=== PATIENT | female | born 1960 | race Caucasian/White ===

== ENCOUNTER 2019-03-12 07:30 | Observation (INO) | payer OTHER ==
[~2019-03-12] VITALS: Ht 170.2 cm; Wt 105.8 kg
[2019-03-12] VITALS (16 sets, daily range): BP systolic 96–136; BP diastolic 60–85
--- OUTSIDE RECORDS SUMMARY | 2019-03-12 07:32 | XMS REPORT | Clinical Summary ---
Author Author [employer] Organization [employer] Address Unknown Phone Unavailable Care Team Providers Care Hot Dog Vendor Name Role Phone Rikki Barba DO PCP Allergies Not on File Medications Not on file Active Problems Not on file Encounters Care Team Description Date Type Specialty Rikki Barba DO Breast cancer screening 07/31/2018 [facility] Radiology Encounter Rikki Barba DO Breast cancer screening (Primary Dx) 07/25/2018 Transcribe Access Orders after 03/11/2018 Family History Medical History Relation Name Comments Breast cancer Maternal Aunt Relation Name Status Comments Maternal Aunt Social History Date Tobacco Use Types Packs/Day Years Used Never Assessed Sex Assigned at Date Recorded Not on file Industry Job Start Date Occupation Not on file Not on file Not on file Travel End Travel History Travel Start No recent travel history available. Last Filed Vital Signs Not on file Plan of Treatment Health Maintenance Due Date Last Done Comments CERVICAL CANCER SCREENING 02/05/1980 COLON CANCER SCREENING 2009 SHINGLES VACCINES (#1) 2009 INFLUENZA VACCINE 06/27/2019 BREAST CANCER SCREENING 07/31/2020 07/31/2018, 07/14/2017, 06/06/2016, Additional history exists Procedures Comments Procedure Name Priority Date/Time Associated Diagnosis MAMMO SCREENING W CAD Routine 07/31/2018 Breast cancer screening BILATERAL 7:55 AM CDT after 03/11/2018 Results * Mammo Screening w Cad Bilateral (07/31/2018 7:55 AM CDT) Narrative Performed At PROCEDURE: MAMMO SCREENING W CAD BILATERAL [facility] Computer aided detection was utilized for the interpretation of the bilateral digital screening mammogram. COMPARISON EXAMS: [id number] DENSITY:The breast tissue is heterogeneously dense, which may obscure small masses. FINDINGS: No suspicious finding is seen. IMPRESSION: No mammographic evidence of malignancy. Recommend annual screening mammography and correlation with physical exam. BI-RADS 1:NEGATIVE This facility is accredited by the [employer] for Mammography. A negative x-ray report should not delay biopsy if a dominant or clinically suspicious mass is present.Not all cancers are identified by x-ray. [id number] Performing Organization Address City/State/Zipcode Phone Number [address] [place] [address] after 03/11/2018 Insurance Payer Benefit Subscriber ID Type Phone Address Plan / Group AETNA AETNA xxxxxxxxxx HMO HMO,POS,EP O, MC/EC
--- OUTSIDE RECORDS SUMMARY | 2019-03-12 07:33 | XMS REPORT | Encounter Summary ---
Author Organization Unknown Address [address] [place] [address] Phone [phone] Reason for Visit Medical Complaint Instructions 1. Upper respiratory infection upper respiratory infection (cold): care instructions Medrol (Maco) 4 mg tablets in a dose pack ProAir HFA 90 mcg/actuation aerosol inhaler Discussion Note: None recorded. Plan of Care Patient Instructions take as directed. follow up pcp Reminders Provider Appointments None recorded. Lab None recorded. Referral None recorded. Procedures None recorded. Surgeries None recorded. Imaging None recorded. Medications Name Start Date allopurinol 10mg once a day amlodipine 5 mg tablet Fish Oil Medrol (Maco) 4 mg tablets in a dose pack take as directed metoprolol tartrate 25 mg tablet Multi Vitamin ProAir HFA 90 mcg/actuation aerosol inhaler Inhale 2 puffs every 4 hours by inhalation route as needed. simvastatin 10 mg tablet Medications Administered None recorded. Vitals Height Weight BMI Blood Pressure 5 ft 8 in 230 lbs 35 kg/m2 138/80 mm[Hg] Lab Results None recorded. Allergies Code Code System Name Reaction Severity Status Onset NKDA Problems None recorded. Procedures Date Name Performed by Appendectomy Information not available Vaccine List None recorded. Social History Smoking Status Never Smoker Past Encounters 10/30/2017 Upper Respiratory Infection MIKY Abad-C: [address] [place] [address], Ph. History of Present Illness Cough Reported By: Patient HPI: Location: chest. Quality: dry cough. Duration: 3 days. Severity: moderate. Onset/Timing: gradual. Context: no sick contacts, no foreign travel, non- smoker. Modifying factors: OTC medication. Associated Symptoms: no sputum production, no shortness of breath, no wheezing, no sweats, no significant weight gain, no significant weight loss, no morning cough, no sore throat, no vomiting, no diarrhea, no rash, no nausea, no fever/chills, no muscle aches, no headache Review of Systems:ROS as noted in the HPI Review of Systems Basic Reported By: Patient Physical Exam Adult Basic, Adult Female Complete Reported By: Patient Constitutional: General Appearance: obese. Level of Distress: NAD. Ambulation: ambulating normally Psychiatric: Mental Status: active and alert Eyes: Lids and Conjunctivae: non-injected, no discharge Vvz-Vkqy-Iztnp-Throat: Ears: no lesions on external ear, no outer ear tenderness, EACs clear, TMs clear. Hearing: no hearing loss. Nose: no lesions on external nose, nares patent, no septal deviation, nasal passages clear, no sinus tenderness, no nasal discharge. Lips, Teeth, and Gums: no mouth or lip ulcers. Oropharynx: moist mucous membranes, no erythema, no exudates, tonsils not enlarged Neck: Neck: trachea midline. Lymph Nodes: no cervical LAD Lungs: Respiratory effort: no dyspnea, no tachypnea, no use of accessory muscles, no intercostal retractions. Auscultation: breath sounds normal Cardiovascular: Heart Auscultation: RRR, no murmurs
--- OUTSIDE RECORDS SUMMARY | 2019-03-12 07:33 | XMS REPORT | Continuity of Care Document ---
Author Author [facility] Address Unknown Phone Unavailable Problems Problem Status Onset Date Classification Date Reported Comments Source Upper respiratory infection 10/30/2017 Diagnosis 10/30/2017 [facility] Streptococcal sore throat 08/26/2017 Diagnosis 08/26/2017 [facility] Tachycardia 08/26/2017 Diagnosis 08/26/2017 [facility] Medications Medication Details Route Status Patient Instructions Ordering Provider Order Date Source Zyloprim allopurinol 10mg once a day Active [facility] Amlodipine 5 MG Oral Tablet amlodipine 5 mg tablet Active [facility] Fish Oil Fish Oil Active [facility] Medrol (Maco) 4 mg tablets in a dose pack Medrol (Maco) 4 mg tablets in a dose pack take as directed Active [facility] Metoprolol Tartrate 25 MG Oral Tablet metoprolol tartrate 25 mg tablet Active [facility] Multi Vitamin Multi Vitamin Active [facility] 200 ACTUAT Albuterol 0.09 MG/ACTUAT Metered Dose Inhaler [ProAir] ProAir HFA 90 mcg/actuation aerosol inhaler Inhale 2 puffs every 4 hours by inhalation route as needed. Active [facility] Simvastatin 10 MG Oral Tablet simvastatin 10 mg tablet Active [facility] Amoxicillin 875 MG Oral Tablet amoxicillin 875 mg tablet Take 1 tablet every 12 hours by oral route for 10 days. Active [facility] Toprol metoprolol succinate 1 tab PO BID Active [facility] Zocor Zocor Active [facility] Allergies, Adverse Reactions, Alerts Substance Category Reaction Severity Reaction type Status Date Reported Comments Source Immunizations Immunization Date Given Site Status Last Updated Comments Source Results Order Name Results Value Reference Range Date Interpretation Comments Source RESULT positive 08/26/2017 [facility] SWAB LOCATION Left and Right tonsillar pillars 08/26/2017 [facility] Vital Signs Vital Sign Value Date Comments Source Diastolic (mm Hg) 80 10/30/2017 [facility] Height 68 10/30/2017 [facility] Systolic (mm Hg) 138 10/30/2017 [facility] Weight 230 10/30/2017 [facility] Diastolic (mm Hg) 82 08/26/2017 [facility] Height 68 08/26/2017 [facility] Systolic (mm Hg) 124 08/26/2017 [facility] Weight 230 08/26/2017 [facility] Encounters Location Location Details Encounter Type Encounter Number Reason For Visit Attending Provider ADM Date DC Date Status Source [place] - [facility] - [id number] MIKY Abad-C: [address] [place] [address], Ph. [id number] Scottie Anand 08/26/2017 [facility] [place] - [facility] - [id number] Paige-C: [address] [place] [address], Ph. [phone] Scottie Anand 10/30/2017 [facility] Procedures Procedure Code Date Perfomer Comments Source Appendectomy [facility]
--- OUTSIDE RECORDS SUMMARY | 2019-03-12 07:33 | XMS REPORT | Encounter Summary ---
Author Organization Unknown Address [address] [place] [address] Phone [phone] Reason for Visit Medical Complaint Instructions 1. Streptococcal sore throat strep throat: care instructions amoxicillin 875 mg tablet rapid strep group A, throat 2. Tachycardia Discussion Note: None recorded. Plan of Care Patient Instructions take rx as directed. otc tylenol or ibuprofen prn. change toothbrush after 3 days. do not share or eat after one another. follow up pcp Reminders Provider Appointments None recorded. Lab Rapid Strep Group a, Throat 08/26/2017 [facility] Referral None recorded. Procedures None recorded. Surgeries None recorded. Imaging None recorded. Medications Name Start Date allopurinol 10mg once a day amoxicillin 875 mg tablet Take 1 tablet every 12 hours by oral route for 10 days. Fish Oil metoprolol succinate 1 tab PO BID Multi Vitamin Zocor Medications Administered None recorded. Vitals Height Weight BMI Blood Pressure 5 ft 8 in 230 lbs 35 kg/m2 124/82 mm[Hg] Lab Results Date Name Specimen Result Interpretation Description Value Range Status Address Rapid Strep Group a, Throat Result positive [facility]: [address] [place] [address] Swab Location Left and Right tonsillar pillars [facility]: [address] [place] [address] Allergies Code Code System Name Reaction Severity Status Onset NKDA Problems None recorded. Procedures Date Name Performed by Appendectomy Information not available Vaccine List None recorded. Social History Smoking Status Never Smoker Past Encounters 08/26/2017 Streptococcal Sore Throat; Tachycardia Scottie Anand, [employer] MACHINE OPERATOR-C: [address] [place] [address], Ph. History of Present Illness Fqwlt-Nbkxarjdvw-Vmwljml Reported By: Patient HPI: Location: throat, chest. Quality: sore throat, dry cough. Duration: 1days. Severity: mild, moderate. Onset/Timing: gradual. Context: no foreign travel, non-smoker, sick contact. Modifying factors: OTC medication. Associated Symptoms: no sputum production, no shortness of breath, no wheezing, no change in number of pillows needed to sleep at night, no sweats, no significant weight gain, no significant weight loss, no morning cough, no vomiting, no diarrhea, no rash, no nausea, no fever, no muscle aches, no headache, sore throat Review of Systems:ROS as noted in the HPI Review of Systems Basic Reported By: Patient Physical Exam Adult Basic, Adult Female Complete Reported By: Patient Constitutional: General Appearance: healthy-appearing, well-nourished, well-developed. Level of Distress: NAD. Ambulation: ambulating normally Psychiatric: Mental Status: active and alert Eyes: Lids and Conjunctivae: non-injected, no discharge Icf-Wdzu-Lsbea-Throat: Ears: no lesions on external ear, no [...] Auscultation: breath sounds normal Cardiovascular: Heart Auscultation: no murmurs, tachycardia
[2019-03-12] MEDS ORDERED: METOPROLOL TART50 MG PO (07:54)
--- NOTE | 2019-03-12 08:06 | NUR ---
XRAY DONE. MD TOLLIVER DONE
[2019-03-12 08:13] LABS: BASOPHILS % 0.4 % (0.0-1.0); EOSINOPHILS # (AUTO) 0.1 (0.0-0.4); EOSINOPHILS % 2.1 % (0.0-6.0); HEMATOCRIT 41.5 % (34.2-44.1); LYMPHOCYTES % 39.4 % (18.0-39.1); MEAN CORPUSCULAR HEMOGLOBIN 29.5 pg (28-32); MEAN CORPUSCULAR HGB CONC 31.3 g/dL (31-35); MEAN CORPUSCULAR VOLUME 94.1 fL (81-99); MONOCYTES # (AUTO) 0.6 (0.2-0.8); MONOCYTES % 12.5 % (4.4-11.3); NEUTROPHILS # (AUTO) 2.3 (2.1-6.9); NEUTROPHILS % 45.4 % (38.7-80.0); PLATELET COUNT 269 x10e3/uL (140-360); RED BLOOD COUNT 4.41 x10e6/uL (3.6-5.1); RED CELL DISTRIBUTION WIDTH 13.2 % (11.7-14.4)
--- NOTE | 2019-03-12 08:30 | Diagnostic Imaging Report ---
EXAM: CHEST SINGLE (PORTABLE), AP Portable DATE: 03/12/2019 Time stamp on exam: 8:04 AM INDICATION: Chest pain COMPARISON: None FINDINGS: LINES/TUBES: None LUNGS: No consolidations or edema. There is a left lower lobe calcified granuloma. PLEURA: No effusions or pneumothorax. HEART AND MEDIASTINUM: Normal size and contour. BONES AND SOFT TISSUES: No acute findings. Mild degenerative changes at the AC joints. IMPRESSION: No acute thoracic abnormality. Signed by: Dr. Cristobal Pagan DO on 03/12/2019 8:27 AM
--- NOTE | 2019-03-12 08:50 | NUR ---
no cp; warm blankets given. sr no ectopy. pending labs
[2019-03-12] MEDS ORDERED: NITROGLYCERIN 2% OINT 1 GM PKT TOP ONE (09:15)
[2019-03-12] MEDS ORDERED: ASPIRIN 325 MG TAB PO ONE (09:15)
--- NOTE | 2019-03-12 09:29 | NUR ---
PT CALLED AND WAS ROCKING BACK AND FORTH STATING URGENCY TO VOID AND CHEST FEELING UNCOMFORTABLE AGAIN. MD NOTIFIED STAT AND PT TO RESTROOM AND UA OBTAINED. PT BEING MEDICATED AND STATES PAIN IS "ONLY" 2/10
[2019-03-12 09:30] LABS: INR 0.93
[2019-03-12] MEDS ORDERED: ENOXAPARIN SODIUM INJ 100 MG/ML SYR SC SCH ×3 (09:30→17:00)
[2019-03-12 09:37] LABS: ALANINE AMINOTRANSFERASE 25 IU/L (0-55); ALBUMIN/GLOBULIN RATIO 1.3 (0.8-2.0); ALKALINE PHOSPHATASE 79 IU/L (40-150); ANION GAP 11.9 mmol/L (8-16); BLOOD UREA NITROGEN 13 mg/dL (7-26); BUN/CREATININE RATIO 15 (6-25); CALCIUM 9.9 mg/dL (8.4-10.2); CARBON DIOXIDE 26 mmol/L (22-29); CHLORIDE 105 mmol/L (98-107); CREATINE KINASE 151 IU/L (29-168); CREATININE, SERUM 0.84 mg/dL (0.57-1.11); EST GLOMERULAR FILTRATION RATE > 60 ML/MIN (60-); GLUCOSE 104 mg/dL (74-118); POTASSIUM 3.9 mmol/L (3.5-5.1); SODIUM 139 mmol/L (136-145)
[2019-03-12 09:53] LABS: PARTIAL THROMBOPLASTIN TIME 32.4 seconds (23.8-35.5)
[2019-03-12] MEDS ORDERED: METOPROLOL TARTRATE INJ 1 MG/ML VIAL IV ONE (10:45)
[2019-03-12] MEDS ORDERED: NITROGLYCERIN 0.4 MG SUBL SL PRN (11:15)
[2019-03-12] MEDS ORDERED: FAMOTIDINE 20 MG TAB PO SCH (11:15)
[2019-03-12] MEDS ORDERED: SODIUM CHLORIDE 0.9% 1000ML 1,000 ML IV SCH (11:15)
[2019-03-12] MEDS ORDERED: MORPHINE SULFATE 2 MG/ML SYR 1ML IV PRN (11:15)
[2019-03-12] MEDS ORDERED: METOPROLOL TARTRATE 25 MG TAB PO SCH (11:15)
[2019-03-12] MEDS ORDERED: ONDANSETRON HCL INJ 2MG/ML 2ML 2 MG/ML VIAL IV PRN (11:15)
[2019-03-12] MEDS ORDERED: MORPHINE SULFATE INJ 4 MG/ML INJ 1ML IV PRN (11:30)
[2019-03-12] MEDS: NITROGLYCERIN 2% OINT 1 GM PKT TOP SCH ×2 (12:00→18:00)
--- OUTSIDE RECORDS SUMMARY | 2019-03-12 12:07 | XMS REPORT | Clinical Summary ---
Author Author [facility]ak [employer] Organization [employer] Address Unknown Phone Unavailable Care Team Providers Care Molded Goods Operator Name Role Phone Rikki Barba DO PCP [...] the bilateral digital screening mammogram. COMPARISON EXAMS: [id number] DENSITY:The breast tissue is heterogeneously dense, which may obscure small masses. FINDINGS: No suspicious finding is seen. IMPRESSION: No mammographic evidence of malignancy. Recommend annual screening mammography and correlation with physical exam. BI-RADS 1:NEGATIVE This facility is accredited by the [employer] for Mammography. A negative x-ray report should not delay biopsy if a dominant or clinically suspicious mass is present.Not all cancers are identified by x-ray. [id number] Performing Organization Address City/State/Zipcode Phone Number [address] [place] [address] after 03/11/2018 Insurance Payer Benefit Subscriber ID Type Phone Address Plan / Group AETNA AETNA xxxxxxxxxx HMO HMO,POS,EP O, MC/EC
--- OUTSIDE RECORDS SUMMARY | 2019-03-12 12:07 | XMS REPORT ---
Author Author [facility] Address Unknown Phone Unavailable Care Team Providers Care Software Integrator Name Role Phone Jignesh GREENE Unavailable Unavailable Problems This patient has no known problems. Allergies, Adverse Reactions, Alerts This patient has no known allergies or adverse reactions. Medications This patient has no known medications. Results Test Description Test Time Test Comments Text Results Atomic Results Result Comments CHEST SINGLE (PORTABLE) 2019-03-12 08:26:00 [place] [address] Patient Name: ERIC BARRAGAN MR #: [id number] : 1960 Age/Sex: 59/F Req #: [id number] Adm Physician: Ordered by: STACIE GREENE MD Report #: [id number] Location: ER Room/Bed: Procedure: [id number] DX/CHEST SINGLE (PORTABLE) Exam Date: 03/12/19 Exam Time: 0754 REPORT STATUS: Signed EXAM: CHEST SINGLE (PORTABLE), AP Portable DATE: Time stamp on exam: 8:04 AM INDICATION: Chest pain COMPARISON: None FINDINGS: LINES/TUBES: None LUNGS: No consolidations or edema. There is a left lower lobe calcified granuloma. PLEURA: No effusions or pneumothorax. HEART AND MEDIASTINUM: Normal size and contour. BONES AND SOFT TISSUES: No acute findings. Mild degenerative changes at the AC joints. IMPRESSION: No acute thoracic abnormality. Signed by: Dr. Talya Pagan DO on 03/12/2019 8:27 AM Dictated By: TALYA PAGAN DO 6 Transcribed By: JANETH on 03/12/19826 COPY TO: STACIE GREENE MD
--- NOTE | 2019-03-12 13:12 | NUR ---
2ND ENZYMES REPORTED TO IMU NEGATIVE. 3 EKGS DONE IN ER
[2019-03-12] MEDS ORDERED: SIMVASTATIN20 MG PO (13:50)
[2019-03-12] MEDS ORDERED: MICARDIS40 MG PO (13:50)
[2019-03-12] MEDS ORDERED: CHONDROITIN SU100 GM (13:50)
[2019-03-12] MEDS ORDERED: FISH OIL 1,2001 EACH (13:50)
[2019-03-12] MEDS ORDERED: GLUCOSAMINE1000 MG (13:50)
[2019-03-12] MEDS ORDERED: CO Q-10200 MG (13:50)
--- NOTE | 2019-03-12 13:54 | Consultation ---
DATE OF CONSULTATION: 03/12/2019 Cardiology Consultation REASON FOR CONSULTATION: Chest pain. HISTORY OF PRESENT ILLNESS: This is a 59-year-old woman with history of hypertension, hyperlipidemia, and PVCs, who presents with complaints of chest pain. The patient reports she was in her usual state of health this morning until she went to the gym to exercise, she got on the elliptical around 5:45 this morning and developed chest pressure 5/10 in severity. The chest pressure improved after she got off the elliptical. Because she was feeling better, she went back on the elliptical and developed chest pressure again. She denies any shortness of breath, nausea, or diaphoresis, but did note the pain radiated to her back. She therefore presented to the ER for further evaluation. She is continuing to have chest pain at this time 3/10 in severity. She denies any edema, orthopnea, or PND. REVIEW OF SYSTEMS: Negative except as per HPI. PAST MEDICAL HISTORY: 1. Hypertension. 2. Hyperlipidemia. 3. PVCs. PAST SURGICAL HISTORY: 1. Right hip replacement. 2. Right oophorectomy. 3. Appendectomy. SOCIAL HISTORY: No tobacco or illicit drugs. She drinks alcohol occasionally. FAMILY HISTORY: Pertinent for mother who had a myocardial infarction at the age of 68 and a father of myocardial portion age of 68 as well. ALLERGIES: NO KNOWN DRUG ALLERGIES. MEDICATIONS: Please see EMR. PHYSICAL EXAMINATION: VITAL SIGNS: Temperature 99 degrees, pulse 68, respiratory rate 16, blood pressure 120/75, and oxygen saturation 100%. GENERAL: Well-developed, well-nourished woman. HEENT: Normocephalic, atraumatic. Pupils equal. No scleral icterus. NECK: Supple. No thyromegaly or cervical lymphadenopathy. No carotid bruits. LUNGS: Clear to auscultation bilaterally. No wheeze or crackles. CARDIOVASCULAR: Normal rate. Regular rhythm. No murmur. Normal S1, S2. ABDOMEN: Soft, nontender. EXTREMITIES: No edema. NEUROLOGIC: Nonfocal exam. LABORATORY DATA: WBC 5.13, hemoglobin 13.8, hematocrit 41.5, platelets 269. Sodium 139, potassium 3.9, chloride 105, CO2 of 26, BUN 13, creatinine 0.84. Troponin 0.001. EKG; normal sinus rhythm with ST and T-wave abnormality, consider inferolateral ischemia. IMPRESSION: 1. Unstable angina. 2. Hypertension. 3. Hyperlipidemia. 4. Premature ventricular contractions. RECOMMENDATIONS: Trend cardiac enzymes to rule out myocardial infarction. Obtain echocardiogram. The patient's symptoms are highly concerning for unstable angina. Continue aspirin as well as Lovenox. Continue beta-ata. Check fasting lipid panel. Ischemic evaluation to be determined based on second troponin. Thank you for this consult. We will continue to follow. Shakila Figueroa MD ABS/MODL /[id number]
[2019-03-12] MEDS ORDERED: SODIUM CHLORIDE 0.9% 1000ML 1,000 ML ONE ×2 (14:38→16:18)
[2019-03-12] MEDS ORDERED: IOPAMIDOL 370 MG/ML 200 ML INFUS..BTL INJ ONE (14:38)
[2019-03-12] MEDS ORDERED: LIDOCAINE HCL 2% LOCAL 20 ML VIAL ONE (14:38)
[2019-03-12] MEDS ORDERED: HEPARIN SOD/SOD CHLORIDE 2,000 ML ONE (14:38)
--- NOTE | 2019-03-12 15:28 | NUR ---
pt resting in bed, no c/o CP. dr ramirez rounded with pt, pt consented to heart cath with possible interventions. pt leaving unit, stable
[2019-03-12] MEDS ORDERED: VERAPAMIL HCL 2.5 MG/ML 2 ML VIAL ONE (15:43)
[2019-03-12] MEDS ORDERED: HEPARIN SOD (PORCINE) 1000 UNIT/ML 30ML ONE (15:43)
[2019-03-12] MEDS ORDERED: MIDAZOLAM HCL 2 MG/2 ML VIAL ONE ×2 (15:44→15:52)
[2019-03-12] MEDS ORDERED: NITROGLYCERIN/D5W 200 MCG/ML 250 ML ONE (15:45)
[2019-03-12] MEDS ORDERED: FENTANYL CITRATE/PF 100MCG/2 ML INJ ONE (15:45)
[2019-03-12] MEDS ORDERED: MEPERIDINE HCL INJ 50 MG/ML INJ ONE (15:55)
[2019-03-12] MEDS ORDERED: PROMETHAZINE HCL (IM) 25 MG/ML VIAL ONE (15:55)
[2019-03-12] MEDS ORDERED: DIGOXIN INJ 0.25 MG/ML 2 ML AMP ONE (16:00)
[2019-03-12] MEDS ORDERED: METOPROLOL TARTRATE INJ 1 MG/ML VIAL ONE (16:02)
--- NOTE | 2019-03-12 16:23 | NUR ---
Report provided to Jodi Gamez RN, review of procedural findings and medications given. Patient drowsy, easily aroused. maintains airway and room air saturations of 99-100%. No gross issues of pressure, pain, pallor or dysrhythmia. IV site patent with NS 0.9% at 250ml/hr by IMED. patient hemodynamically stable with hemostasis right radial TR band. CDI w/o s/s of bleeding. patient transferred to stretcher under own strength w/o incident. transported to [facility], ACU 10. Bed low and locked, SR up x2, TR band syringe present, placed on 2L/NC and bedside monitor- cgf procedure: Diagnostic Left heart cath, coronary angiography, LV angiography Sheath puller: Pa Romano RTr applied L-TR band 14ml Meds Given Intra-Procedure Sedatives Versed - 3 mg Fentanyl - 75 mcg Demerol - 25mg Anticoagulants Heparin - 3000 Units IA Fluids Input - 500 ml Output -dtv Contrast Isovue 370 - 70ml Other Meds Digoxin 500mcg IV Metoprolol 5mg IV Phenergan 25mg IV
[2019-03-12] MEDS: SODIUM CHLORIDE 0.9% 1000ML 1,000 ML IV SCH ×2 (16:45→18:44)
[2019-03-12] MEDS ORDERED: METOPROLOL SUCCINATE 50 MG TAB XL PO SCH (16:45)
[2019-03-12] MEDS: METOPROLOL SUCCINATE 50 MG TAB XL PO SCH (16:48)
--- NOTE | 2019-03-12 17:23 | NUR ---
TR band intact, removed 2ml, reduced to 12ml. Education performed. family at bedside. VS wnl. -cgf
--- NOTE | 2019-03-12 17:49 | Operative Report ---
DATE OF PROCEDURE: 03/12/2019 SURGEON: Rober Ayala MD CARDIAC RN DOCUMENTATION PROCEDURE NOTE INDICATION: Coronary artery disease with kco-SQ-jlwjauw elevation myocardial infarction. PROCEDURES PERFORMED: 1. Left heart catheterization, selective coronary angiography, left ventriculography. 2. Deployment of right wrist TR band. COMPLICATIONS: None. RECOMMENDATIONS: Aggressive medical therapy with beta ata. DESCRIPTION OF PROCEDURE: Access was obtained in the right radial artery. A 5-Italian sheath was placed. Coronary angiography demonstrated minimal coronary artery disease, less than 10% luminal stenosis. No critical stenosis or occlusions were noted. No coronary spasm, extreme tachycardia, possibly atrial tachycardia was noted. LV ejection fraction greater than 70%. LV end-diastolic pressure of 5. No gradient across the aortic valve pullback. Guide and sheath removed. TR band applied. The patient discharged home same day. Rober Ayala MD KSB/MODL /[id number]
--- NOTE | 2019-03-12 18:15 | NUR ---
Pt meets DC criteria back to IM. Report given to Brittany FITCH . Right radial TR band titration complete. assessed for s/s of complication and presequence of hematoma. right arm/hand warm, dry, no discolor, and pulses present. + Neurovascular function present. IV to right forearm patent with IVF infusing. Pt denies pain, sob, or need at this time. Family at bedside. Review of post procedural orders . Pt verbalized understanding. Pt transported on bed on Zolls monitor. - cgf
[2019-03-12] MEDS ORDERED: SIMVASTATIN 20 MG TAB PO SCH (21:00)
[2019-03-12 21:03] LABS: CREATINE KINASE MB 1.3 ng/mL (0-5.0)
[2019-03-13] VITALS (7 sets, daily range): BP systolic 110–143; BP diastolic 62–90
[2019-03-13] MEDS: NITROGLYCERIN 2% OINT 1 GM PKT TOP SCH ×4 (01:00→17:41)
[2019-03-13 05:22] LABS: BASOPHILS % 0.4 % (0.0-1.0); EOSINOPHILS # (AUTO) 0.1 (0.0-0.4); EOSINOPHILS % 1.5 % (0.0-6.0); HEMATOCRIT 34.5 % (34.2-44.1); HEMOGLOBIN 10.6 g/dL (12.0-16.0); LYMPHOCYTES # (AUTO) 2.1 (1.0-3.2); LYMPHOCYTES % 37.5 % (18.0-39.1); MEAN CORPUSCULAR HEMOGLOBIN 29.4 pg (28-32); MEAN CORPUSCULAR HGB CONC 30.7 g/dL (31-35); MEAN CORPUSCULAR VOLUME 95.6 fL (81-99); MONOCYTES # (AUTO) 0.6 (0.2-0.8); MONOCYTES % 11.6 % (4.4-11.3); NEUTROPHILS # (AUTO) 2.7 (2.1-6.9); NEUTROPHILS % 48.8 % (38.7-80.0); PLATELET COUNT 207 x10e3/uL (140-360); RED BLOOD COUNT 3.61 x10e6/uL (3.6-5.1); RED CELL DISTRIBUTION WIDTH 13.5 % (11.7-14.4)
[2019-03-13 05:59] LABS: ANION GAP 8.3 mmol/L (8-16); BLOOD UREA NITROGEN 11 mg/dL (7-26); BUN/CREATININE RATIO 13 (6-25); CALCIUM 8.6 mg/dL (8.4-10.2); CARBON DIOXIDE 24 mmol/L (22-29); CHLORIDE 113 mmol/L (98-107); CREATININE, SERUM 0.82 mg/dL (0.57-1.11); EST GLOMERULAR FILTRATION RATE > 60 ML/MIN (60-); GLUCOSE 87 mg/dL (74-118); POTASSIUM 4.3 mmol/L (3.5-5.1); SODIUM 141 mmol/L (136-145)
[2019-03-13] MEDS ORDERED: FAMOTIDINE 20 MG TAB PO SCH (07:30)
--- NOTE | 2019-03-13 07:36 | NUR ---
PATIENT CONTINUE RESTING, NO DISTRESS NOTED, NO COMPLAINTS OF CHEST PAINS. IV INFUSING, ROUNDS DONE, CALL LIGHT REMAIN IN REACH.
[2019-03-13 07:43] LABS: CHOL/HDL RATIO 2.5 (3.0-3.6); CHOLESTEROL 101 MD/DL (0-199); HDL CHOLESTEROL 40 MG/DL (40-60); LDL CHOLESTEROL 45 MG/DL (60-130); TRIGLYCERIDES 81 MG/DL (0-149)
[2019-03-13 08:05] LABS: CREATINE KINASE MB 1.5 ng/mL (0-5.0)
[2019-03-13] MEDS ORDERED: ASPIRIN 81 MG ENTERIC COATED PO SCH (09:00)
[2019-03-13] MEDS ORDERED: TELMISARTAN 40 MG TAB PO SCH (09:00)
[2019-03-13] MEDS ORDERED: ONDANSETRON HCL 4 MG ORAL DISINTEGRATING TAB PO PRN (09:45)
[2019-03-13] MEDS: METOPROLOL SUCCINATE 50 MG TAB XL PO SCH (10:24)
[2019-03-13] MEDS ORDERED: ENOXAPARIN SOD INJ 40 MG/0.4 ML SYR SC SCH (17:00)
--- NOTE | 2019-03-13 17:35 | Progress Note ---
DATE: 03/13/2019 Cardiology Progress Note SUBJECTIVE: The patient denies chest pain or shortness of breath. OBJECTIVE: VITAL SIGNS: Temperature 98 degrees, pulse 67, respiratory rate 20, blood pressure 111/62, and oxygen saturation 97% on room air. GENERAL: Awake, alert, no acute distress. LUNGS: Clear to auscultation bilaterally. No wheezes or crackles. CARDIOVASCULAR: Normal rate. Regular rhythm. No murmur. Normal S1, S2. ABDOMEN: Soft and nontender. EXTREMITIES: No edema. CARDIAC MEDICATIONS: Telmisartan 40 mg p.o. daily, metoprolol succinate 50 mg p.o. daily, aspirin 81 mg p.o. daily, and simvastatin 10 mg p.o. at bedtime. LABORATORY DATA: WBC 5.5, hemoglobin 10.6, hematocrit 34.5, and platelets 207. Sodium 141, potassium 4.3, chloride 113, CO2 of 24, BUN 11, creatinine 0.82. Cholesterol 101, LDL 45, HDL 40, triglycerides 81. TELEMETRY: Sinus bradycardia. IMPRESSION: 1. Chest pain, likely secondary to atrial tachycardia. 2. Hypertension. 3. Hyperlipidemia. 4. PVCs. RECOMMENDATIONS: No evidence of myocardial infarction on serial cardiac biomarkers. Echocardiogram is pending. Coronary angiogram did not reveal any significant coronary artery disease; however, episode of tachycardia was noted during procedure while the patient was sedated, suspected to be atrial tachycardia. Continue beta-blockade. Continue home cardiac medications otherwise. Thank you for this consult. We will continue to follow. Shakila Figueroa MD ABS/MODL /[id number]
--- NOTE | 2019-03-13 17:48 | NUR ---
Called , made aware patient c/o of mid-sternal chest pain no new orders received.
[2019-03-13] MEDS ORDERED: TRAMADOL HCL 50 MG TAB PO PRN (18:00)
[2019-03-13] MEDS ORDERED: METOPROLOL SUCC50 MG PO (21:05)
[2019-03-13] MEDS ORDERED: ASPIRIN EC81 MG PO (21:05)
--- NOTE | 2019-03-14 01:23 | Discharge Summary ---
PCP: Lucien Barba DO. CONSULTS: Include Dr. José Antonio Alberto and Dr. Figueroa with Cardiology has been following on the case. HOSPITAL COURSE: Ms. Walls is a [id number], who complained of chest pain while on treadmill which resolved with rest and reoccurred on the treadmill. She had an episode of sinus tachycardia/atrial tachycardia with EKG changes. PAST MEDICAL HISTORY: Hypertension and PVCs. She states she has been PVCs since her age 31 and she still has some central chest pain which is nonradiating. ADMITTING DIAGNOSES: Include: 1. Unstable angina. 2. Hypertension. 3. Hyperlipidemia. DISCHARGE DIAGNOSES: 1. Unstable angina. 2. Hypertension. 3. Hyperlipidemia. PERTINENT LABS: On admission, BUN 13, creatinine 0.84, GFR greater than 60. LFTs were normal. Troponin I 0.001 and 0.002 and 0.013 and finally 0.033. CK-MB was 2.1 and 1.3, then 1.5. Triglycerides 81, cholesterol 101, LDL 45, HDL 40. Chest x-ray done on the showed no acute thoracic abnormality. Echocardiogram done on March 13 showed estimated ejection fraction 60%. EKG done on March 12 showed sinus tachycardia with occasional PVCs with heart rate of 104 and another one at around 10 a.m. on March 12 showed normal sinus rhythm with the heart rate of 84. Yesterday, the patient underwent left heart catheterization, selective coronary angiography, and left ventriculography. There is less than 10% luminal stenosis. There was minimal coronary artery disease, no coronary spasm, extreme tachycardia, possibly atrial tachycardia was noted. Left ventricular ejection fraction greater than 70%. The patient had extreme tachycardia 130 to 140 beats per minute while sedated, so possibly atrial tachycardia. From discussion with the patient, she states that she is going to follow up with Dr. Figueroa and will be taking the metoprolol succinate 100 mg daily and probably followup with Holter monitor in 2 weeks after being on that. I encouraged her to speak with her PCP Dr. Barba about possibly getting GI referral and getting GI workup as she never had EGD or colonoscopy at age 59. Dictated by Carlos Mayers, [employer] SERVICE REPRESENTATIVE Joe Scott MD HWP/MODL /[id number]
== END 2019-03-13 21:49 | disposition home or self-care (01) ==
LOC: ER 07:30 → ERHOLD 12:04 → IMCU 13:17
PROVIDERS: ADMIT Internal Medicine; ATTEND Internal Medicine
DX: I20.0 Unstable angina (principal); I47.1 Supraventricular tachycardia; R07.9 Chest pain, unspecified; R94.31 Abnormal electrocardiogram [ECG] [EKG]; I10 Essential (primary) hypertension; E78.5 Hyperlipidemia, unspecified; I49.3 Ventricular premature depolarization
CPT/HCPCS: 36415 ×2; 71045; 80048; 80053; 80061; 82550 ×2; 82553 ×2; 84484 ×2; 85025 ×2; 85610; 85730; 93005; 93306; 93458; 99284; C1769; C1887; G0378 ×2; J1160; J1644; J1650 ×2; J2001; J2175; J2250; J2550; J7030; Q9967